=== PATIENT | male | born 1960 | race Caucasian/White ===

== ENCOUNTER 2016-05-21 14:03 | Inpatient (IN) | payer OTHER ==
[2016-05-21 14:51] LABS: MPV 7.6 fL (7.4-10.4)
[2016-05-21 15:02] LABS: BLOOD UREA NITROGEN 12 MG/DL (9-20); CALC CORRECTED 9.1 MG/DL (8.4-10.2); CALCIUM 8.8 MG/DL (8.4-10.2); CALCULATED OSMOLALITY 262 MOs/Kg (270-290); CHLORIDE 101 mEq/L (98-107); GLUCOSE 97 MG/DL (70-99); PARTIAL THROMB. TIME 21.7 SEC (22-35); PT-INR 1.1; SODIUM LEVEL 136 mEq/L (137-146)
--- NOTE | 2016-05-21 15:22 | EDPRACDOC ---
- General Information Chief Complaint: Generalized Weakness Stated Complaint: WEAKNESS/LOW BLOOD COUNTS Time Seen by Provider: 05/21/16 15:15 Information Source: Patient Mode Of Arrival: Car Home Medications: Home Medications CYANOCOBALAMIN (Vitamin B-12) [Vitamin B-12] 1,000 mcg IM .MONTHLY 05/21/16 Finasteride [Proscar] 5 mg PO DAILY 05/21/16 Interferon Beta-1A/Albumin [Rebif 44 Mcg/0.5 ml Syringe] 44 mcg SQ DIR Mercaptopurine 50 mg PO DAILY 05/21/16 Mesalamine [Apriso] 0.375 gm PO QID 05/21/16 Sertraline HCl [Zoloft] 100 mg PO DAILY 05/21/16 Tamsulosin HCl [Flomax] 0.4 mg PO DAILY 05/21/16 Allergies/Adverse Reactions: Allergies Allergy/AdvReac Type Severity Reaction Status Date / Time No Known Allergies Allergy Verified 05/21/16 14:26 - History of Present Illness Onset: 2 months Exact Onset of Symptoms: Unknown HPI: PT HAS BEEN FEELING INCREASINGLY WEAK. THE PT SAID THAT HE WENT TO HIS PCP. HIS DR ABURTO BLOOD AND SAID THAT HE WAS ANEMIC AND TOLD HIM TO GO TO THE ED. Symptoms Started: Reports: Gradually Symptoms Description: Worsening Weakness: Bilateral: Generalized Symptoms: Reports: Weak Symptom Severity: Reports: Unable to performs ADL's Relevant History of: Reports: Anemia Associated signs and symptoms:: Reports: None ED Past Medical History - Patient Medical History Neurological History: Reports: Multiple Sclerosis Systemic History: Reports: Anemia Additional Past Medical History: CROHN'S DISEASE Surgical History: Reports: No Significant History - Social Medical History Smoking Status: Never smoker ETOH: None Substance Abuse: None Lives In: Home EDM Review of Systems - Review of Systems ROS Negative Except as Marked: Yes All systems reviewed and were negative except as marked Constitutional: Fatigue, Weakness - Physical Exam Constitutional: Alert (Awake), No apparent distress Oriented to: Time, Person, Place Last recorded Vital Signs: Last Vital Signs Temp 98.3 F 05/21/16 14:24 Pulse 110 05/21/16 14:24 Resp 22 05/21/16 14:24 BP 134/63 05/21/16 14:24 Pulse Ox 100 05/21/16 14:24 Oxygen Pulse Oxygen Saturation 100 O2 Device Room Air Oxygen Flow Rate Fraction of Inspired Oxygen ( FIO2) - HEENT Head: Normal ( normocephalic) Eye Exam: Pale Conjunctiva Oropharynx: Normal (Pharynx:Moist without exudate,Gums-no swelling) ENT EAC: Normal TMJ: Normal Nose: No Symptoms Reported (septum midline) Neck: Normal (FROM, trachea at midline) - Respiratory/Cardiovascular Respiratory: Normal - CTA (BBS clear to auscultation without adventitious sounds ) Cardiovascular: Tachycardia - GI Auscultation: Normal (NABS) Palpation: Normal (Soft,No rebound or guarding, non distended) Tenderness: Non tender Wallace's Sign: Negative Rectal Exam: Heme negative stool Stool: Brown - Musculoskeletal Back: Normal (Non-Tender) Extremities: Normal (Normal tone, Pulses 2+ No cyanosis or edema, FROM) - Integumentary Skin: Pale Lymphatics: Normal - Neurologic Memory Impaired: Normal Motor Function: Normal (Normal tone, Pulses 2+ No cyanosis or edema, FROM) Cranial Nerve: Normal (CN II-X11 intact sensation, strength 5/5) Cerebellar: Normal Mood Description: Normal Thought: Coherent Perception: Normal - Results 05/21/16 14:30 05/21/16 14:30 WBC 5.1 xk/uL (3.8-10.8) 05/21/16 14:30 RBC 2.53 xM/uL (4.70-6.10) L 05/21/16 14:30 Hgb 4.8 g/dL (14.0-18.0) L* 05/21/16 14:30 Hct 16.5 % (42-52) L 05/21/16 14:30 MCV 65 fL (80-94) L 05/21/16 14:30 MCH 19.0 pg (27-32) L 05/21/16 14:30 MCHC 29.1 g/dl (33-36) L 05/21/16 14:30 RDW 19.4 % (11.5-14.5) H 05/21/16 14:30 Plt Count 337 xk/uL (130-400) 05/21/16 14:30 MPV 7.6 fL (7.4-10.4) 05/21/16 14:30 PT 11.0 SEC (9.2-11.2) 05/21/16 14:30 INR 1.1 05/21/16 14:30 APTT 21.7 SEC (22-35) L 05/21/16 14:30 Sodium 136 mEq/L (137-146) L 05/21/16 14:30 Potassium 4.2 mEq/L (3.5-5.1) 05/21/16 14:30 Chloride 101 mEq/L (98-107) 05/21/16 14:30 Carbon Dioxide 25 mMOL/L (22-33) 05/21/16 14:30 Anion Gap 14 mEq/L (8-16) 05/21/16 14:30 BUN 12 MG/DL (9-20) 05/21/16 14:30 Creatinine 1.10 MG/DL (0.66-1.25) 05/21/16 14:30 Estimated GFR (MDRD) > 60 mL/min (>=60) 05/21/16 14:30 Glucose 97 MG/DL (70-99) 05/21/16 14:30 Calculated Osmolality 262 MOs/Kg (270-290) L 05/21/16 14:30 Calcium 8.8 MG/DL (8.4-10.2) 05/21/16 14:30 Corrected Calcium 9.1 MG/DL (8.4-10.2) 05/21/16 14:30 Total Bilirubin 0.3 MG/DL (0.2-1.3) 05/21/16 14:30 AST 21 IU/L (17-59) 05/21/16 14:30 ALT 27 IU/L (21-72) 05/21/16 14:30 Alkaline Phosphatase 59 IU/L (38-126) 05/21/16 14:30 Troponin I < 0.01 ng/mL (<.04) 05/21/16 14:30 Dqv-P-Yxsjoqmkvwe Pept 113 pg/mL (0-900) 05/21/16 14:30 Total Protein 7.0 G/DL (6.3-8.2) 05/21/16 14:30 Albumin 3.7 G/DL (3.5-5.0) 05/21/16 14:30 Crossmatch See Detail 05/21/16 14:30 Lab Results 05/21/16 05/21/16 05/21/16 14:30 14:30 14:30 WBC 5.1 RBC 2.53 L Hgb 4.8 L* Hct 16.5 L MCV 65 L MCH 19.0 L MCHC 29.1 L RDW 19.4 H Plt Count 337 MPV 7.6 PT 11.0 INR 1.1 APTT 21.7 L Sodium Potassium Chloride Carbon Dioxide Anion Gap BUN Creatinine Estimated GFR (MDRD) Glucose Calculated Osmolality Calcium Corrected Calcium Total Bilirubin AST ALT Alkaline Phosphatase Troponin I Pba-N-Xnmunmgdgly Pept Total Protein Albumin Crossmatch See Detail 05/21/16 14:30 WBC RBC Hgb Hct MCV MCH MCHC RDW Plt Count MPV PT INR APTT Sodium 136 L Potassium 4.2 Chloride 101 Carbon Dioxide 25 Anion Gap 14 BUN 12 Creatinine 1.10 Estimated GFR (MDRD) > 60 Glucose 97 Calculated Osmolality 262 L Calcium 8.8 Corrected Calcium 9.1 Total Bilirubin 0.3 AST 21 ALT 27 Alkaline Phosphatase 59 Troponin I < 0.01 Eke-U-Nyqlzebqsix Pept 113 Total Protein 7.0 Albumin 3.7 Crossmatch - EKG EKG #1 EKG Time: 15:21 -: Yes EKG interpreted by me Rate: bpm: 82 Stephen: Normal Rhythm: NSR, PACs Block: None Hypertrophy: None ST: Normal - Diagnostic Imaging Chest Image interpreted by: Radiologist nad - Departure Yes I personally saw and evaluated the patient. Disposition: Admit IP To This Hospital Condition: Fair Final Diagnosis: Acute post-hemorrhagic anemia Instructions: Weakness (General) Education/Counseling Given To: Patient Education/Counseling Given Regarding: Diagnosis, Treatment, Follow Up Referrals: Farhan Zhang II, MD [Primary Care Provider] - One Week Decision to Admit Time: 15:28 Decision to admit date: 05/21/16 Decision to admit: from ED - Physician Consulted Hospitalist Provider Called: Vickie Carrillo
[2016-05-21 15:42] LABS: SEG NEUTROPHIL 85 % (45-76)
--- NOTE | 2016-05-21 15:53 | DIRPT ---
CLINICAL DATA: Chest pain EXAM: PORTABLE CHEST 1 VIEW COMPARISON: None. FINDINGS: Lungs are clear. Heart size and pulmonary vascularity are normal. No adenopathy. No pneumothorax. No bone lesions. IMPRESSION: No edema or consolidation. Electronically Signed By: Isidoro Hobbs III, M.D. On: 05/21/2016 15:50
[2016-05-21 16:00] LABS: LEUKOCYTES/URINE NEG (NEGATIVE); NITRITE/URINE NEG (NEGATIVE); RBC/URINE 0-2 (0-2); URINE OCCULT BLOOD NEG (NEG/TRACE)
--- NOTE | 2016-05-21 16:57 | HISTPHYS ---
- Chief Complaint weak, pale, sob - History of Present Illness 56 yowm presented to emergency room early on today for evaluation of progressive worsening weakness and abnormal blood test. Patient stays the past few weeks he has noticed progressive worsening weakness, dyspnea initially with moderate amount of physical exertion recently with minimal physical exertion, feeling dizzy lightheaded and profoundly tired. He reports that walking up a flight of steps recently it was a major undertaking. He has noticed profound paleness of his skin lately. Patient reports receiving 2 rounds of antibiotics lately for upper respiratory tract infection and denies any recent cough or phlegm production. Patient reports that his Crohn's disease has been under good control with no recent flare-ups, he denies any abdominal pain nausea vomiting or bloody diarrhea. He reports no easy bruising or bleeding. He was seen by his PCP and CBC was obtained paste advised to proceed to emergency room for further evaluation. Rectal exam was performed by ED MD; no stool in the vault but heme-negative. Medical consultation was phoned in for inpatient treatment. - Medical History Cardiac History: Reports: No Significant History Respiratory History: Reports: No Significant History GI/ History: Reports: No Significant History, Gastroesophageal Reflux (Chrom's ) Musculoskeletal History: Reports: No Significant History Systemic History: Reports: No Significant History, Anemia, Other (multiple sclerosis) Neurological History: Reports: No Significant History, Multiple Sclerosis Psychological History: Reports: Depression, Anxiety - Surgical History Reports: Hernia Surgery, Tonsillectomy - Medictions/Allergies Allergies No Known Allergies Allergy (Verified 05/21/16 14:26) Current Medication List: Reviewed Home Medications CYANOCOBALAMIN (Vitamin B-12) [Vitamin B-12] 1,000 mcg IM .MONTHLY 05/21/16 Finasteride [Proscar] 5 mg PO DAILY 05/21/16 Interferon Beta-1A/Albumin [Rebif 44 Mcg/0.5 ml Syringe] 44 mcg SQ DIR Mercaptopurine 50 mg PO DAILY 05/21/16 Mesalamine [Apriso] 0.375 gm PO QID 05/21/16 Sertraline HCl [Zoloft] 100 mg PO DAILY 05/21/16 Tamsulosin HCl [Flomax] 0.4 mg PO DAILY 05/21/16 - Family History Reports: No Significant History, Other (Both parents alive and well with no major medical problems.) - Social History Travel Outside of [place] in the Last 3 Months?: No Lives: With Family Smoking Status: Never smoker - Review of Systems Constitutional: Diaphoresis, Fatigue, Weakness Eyes: No Symptoms Reported Ears: No Symptoms Reported Nose: No Symptoms Reported Mouth: No Symptoms Reported Throat/Neck: No Symptoms Reported Respiratory: Dyspnea Cardiovascular: Palpitations Gastrointestinal: No Symptoms Reported Genitourinary: No Symptoms Reported Neurological: Dizziness, Weakness Musculoskeletal:: No Symptoms Reported Integumentary: No Symptoms Reported Allergic/Immunologic: No Symptoms Reported Hematologic: No Symptoms Reported Endocrine: No Symptoms Reported Psychiatric: No Symptoms Reported - Physical Exam Vital Signs: Initial Vitals Temperature 98.3 F 05/21/16 14:24 Pulse Rate 110 05/21/16 14:24 Respiratory Rate 22 05/21/16 14:24 Blood Pressure 134/63 05/21/16 14:24 Pulse Oxygen Saturation 100 05/21/16 14:24 Constitutional: No apparent distress, Alert, Other (Pale) Oriented to: Time, Person, Place - HEENT Head: Normal Eye: Normal Oropharynx: Membranes Dry ENT EAC: Normal TMJ: Normal Nose: No Symptoms Reported Respiratory: Diminished, Rhonchi Cardiovascular: Normal, Systolic murmur - GI Auscultation: Normal Palpation: Normal Tenderness: Non tender Wallace's Sign: Negative Rectal Exam: Heme negative stool - Exam Deferred: Yes - Musculoskeletal Back: Normal Extremities: Normal Spine: non-tender - Integumentary Skin: Normal, Warm, Dry, Pale Lymphatics: Normal - Neurologic Memory Impaired: Normal Motor Function: Normal Cranial Nerve: Normal Cerebellar: Normal Mood Description: Normal Thought: Coherent Perception: Normal - Focused CV Perfusion Exam Vital Signs: Last Vital Signs Temp 98.9 F 05/21/16 16:45 Pulse 91 05/21/16 16:45 Resp 18 05/21/16 16:45 BP 138/66 05/21/16 16:45 Pulse Ox 94 05/21/16 16:45 - Diagnostic Findings Allergies No Known Allergies Allergy (Verified 05/21/16 14:26) Last Vital Signs Temp 98.9 F 05/21/16 16:45 Pulse 91 05/21/16 16:45 Resp 18 05/21/16 16:45 BP 138/66 05/21/16 16:45 Pulse Ox 94 05/21/16 16:45 05/21/16 14:30 05/21/16 14:30 Abnormal Lab Results 05/21/16 05/21/16 05/21/16 14:30 14:30 14:30 RBC 2.53 L Hgb 4.8 L* Hct 16.5 L MCV 65 L MCH 19.0 L MCHC 29.1 L RDW 19.4 H Seg Neuts % (Manual) 85 H Lymphocytes % (Manual) 8 L Absolute Lymphocytes 0.41 L APTT 21.7 L Sodium 136 L Calculated Osmolality 262 L Crossmatch 05/21/16 14:30 RBC Hgb Hct MCV MCH MCHC RDW Seg Neuts % (Manual) Lymphocytes % (Manual) Absolute Lymphocytes APTT Sodium Calculated Osmolality Crossmatch See Detail - Assessment (1) Anemia D64.9 - ANEMIA, UNSPECIFIED Acute Present on Admission: Yes Qualifiers: Anemia type: unspecified type Qualified Code(s): D64.9 - Anemia, unspecified Profound and symptomatic. Patient will be type and crossed and transfused with 4 units of pooled red blood cells. Monitor blood count after transfusion. Workup will be undertaken, will obtain iron studies B12 and folic acid prior to transfusion. Hem lytic workup will be undertaken as well. Given chronic immunosuppressive therapy did may result in bone marrow suppression will withhold his Imuran and consult Hematology. Parvovirus titers will be obtained as well. (2) Crohn's colitis K50.10 - CROHN'S DISEASE OF LARGE INTESTINE WITHOUT COMPLICATIONS Chronic Present on Admission: Yes Qualifiers: Digestive disease complication type: without complication Qualified Code(s) : K50.10 - Crohn's disease of large intestine without complications Will continue Asacol. Will withhold Imuran. Patient will be seen in consultation by his personal health equipment servicer Dr. Jeffers. It seems that Crohn' s colitis has been under good control with no recent flare-ups and no active issues. (3) Multiple sclerosis G35 - MULTIPLE SCLEROSIS Chronic Present on Admission: Yes Continue interferon. Stable with no recent flare-ups as well (4) BPH (benign prostatic hyperplasia) N40.0 - BENIGN PROSTATIC HYPERPLASIA WITHOUT LOWER URINRY TRACT SYMP Chronic Present on Admission: Yes Qualifiers: Prostatic enlargement morphology: non-nodular Lower urinary tract symptom presence: symptoms absent Qualified Code(s): N40.0 - Benign prostatic hyperplasia without lower urinary tract symptoms Stable on medical therapy with no obstructive symptoms at present time (5) Adolescent depression F32.9 - MAJOR DEPRESSIVE DISORDER, SINGLE EPISODE, UNSPECIFIED Chronic Present on Admission: Yes Continue Zoloft (6) GERD (gastroesophageal reflux disease) K21.9 - GASTRO-ESOPHAGEAL REFLUX DISEASE WITHOUT ESOPHAGITIS Chronic Present on Admission: Yes Qualifiers: Esophagitis presence: without esophagitis Qualified Code(s): K21.9 - Gastro -esophageal reflux disease without esophagitis Continue PPI Case Care Discussed with: Patient, Consultants, Nursing Staff Total Time: 60 min . Critical Care: No Code: 32690
[2016-05-21] MEDS ORDERED: NS 1,000 ML IV SCH (17:00)
[2016-05-21 18:26] LABS: % SATURATION 2.8 % (20-50)
[2016-05-21 19:24] LABS: FOLATES 15.5 ng/mL (>2.76)
[2016-05-21] MEDS ORDERED: ENOXAPARIN 40 MG/0.4 ML PFS SQ SCH (20:00)
[2016-05-21] MEDS ORDERED: MESALAMINE 0.375 GM PO SCH (21:00)
[2016-05-22] MEDS ORDERED: Vaccine Screening Complete SCH (01:00)
[2016-05-22 01:41] VITALS: BMI 25.7
[2016-05-22 04:59] VITALS: TEMP 98.5
[2016-05-22 06:13] LABS: AUTOMATED BASOPHIL 1.7 % (0-2); AUTOMATED LYMPH 19.2 % (17-44); AUTOMATED MONOCYTE 9.5 % (3-10); AUTOMATED NEUTROPHIL 68.6 % (45-76); MPV 7.8 fL (7.4-10.4)
[2016-05-22 06:25] LABS: BLOOD UREA NITROGEN 10 MG/DL (9-20); CALCIUM 8.3 MG/DL (8.4-10.2); CALCULATED OSMOLALITY 267 MOs/Kg (270-290); CHLORIDE 107 mEq/L (98-107); GLUCOSE 85 MG/DL (70-99); SODIUM LEVEL 140 mEq/L (137-146)
[2016-05-22] MEDS ORDERED: NS 1,000 ML IV SCH (08:00)
--- NOTE | 2016-05-22 08:04 | GENMEDPROG ---
Subjective Note: Patient in bed responsive follows commands. Fully alert awake oriented and interactive. Tolerated blood transfusion with no reaction. Feels much better after transfusion.. Denies any difficulties breathing cough or phlegm production denies any nausea vomiting diarrhea constipation or melena. Notes Reviewed: Yes Events from last night noted and discussed with Clinical Staff Current Medication List: Reviewed Currently: Reports: Reflux Sx DVT Prophylaxis: Yes - Physical Examination Vital Signs and I&O: Last Vital Signs Temp 98.5 F 05/22/16 04:54 Pulse 61 05/22/16 06:00 Resp 18 05/22/16 04:54 BP 138/77 05/22/16 04:54 Pulse Ox 100 05/22/16 04:54 Oxygen Pulse Oxygen Saturation 100 O2 Device Room Air Oxygen Flow Rate Fraction of Inspired Oxygen ( FIO2) Intake & Output 05/19/16 05/20/16 05/21/16 05/22/16 23:59 23:59 23:59 23:59 Intake Total 1080 840 Output Total 550 1050 Balance 530 -210 Patient's weight 72.303 kg General: Alert, Oriented x3, Cooperative, No acute distress HEENT: Normal, PERRLA, EOMI, Anicteric Sclera Neck: Non-tender, Limited range of motion Lymphatics: Normal Respiratory: Diminished, Rhonchi Cardiovascular: Regular rate, Normal S1, Normal S2 GI: Normal bowel sounds, Soft, Non tender, No hepatospenomegaly, No masses Extremities/Musculoskeletal: Normal pulses Skin: Warm,Dry and Intact, No rashes, No breakdown, No significant lesion Neurological: Normal speech, Normal tone Psych/Mental Status: Anxious Lab/DI/Studies Reviewed: Allergies No Known Allergies Allergy (Verified 05/21/16 14:26) 05/22/16 05:50 05/22/16 05:50 Abnormal Lab Results 05/21/16 05/21/16 05/21/16 14:30 14:30 14:30 RBC 2.53 L Hgb 4.8 L* Hct 16.5 L MCV 65 L MCH 19.0 L MCHC 29.1 L RDW 19.4 H Seg Neuts % (Manual) 85 H Lymphocytes % (Manual) 8 L Absolute Lymphocytes 0.41 L APTT 21.7 L Sodium 136 L Calculated Osmolality 262 L Calcium Iron % Saturation Ferritin Lactate Dehydrogenase Crossmatch 05/21/16 05/21/1617 14:30 14:30 14:30 RBC Hgb Hct MCV MCH MCHC RDW Seg Neuts % (Manual) Lymphocytes % (Manual) Absolute Lymphocytes APTT Sodium Calculated Osmolality Calcium Iron 13.0 L % Saturation 2.8 L Ferritin 6.8 L Lactate Dehydrogenase 309 L Crossmatch See Detail 05/22/16 05/22/16 05:50 05:50 RBC 3.90 L Hgb 9.4 L D Hct 29.0 L MCV 74 L MCH 24.1 L MCHC 32.3 L RDW 22.9 H Seg Neuts % (Manual) Lymphocytes % (Manual) Absolute Lymphocytes APTT Sodium Calculated Osmolality 267 L Calcium 8.3 L Iron % Saturation Ferritin Lactate Dehydrogenase Crossmatch Patient Name: FARRAH EDDY LOC: ED : 1960 AGE: 56 Order Date:05/21/16 Date of Service:09/01 Report # [id number] Ord Physician: Darren Joshi DO Exam # [id number] Emergency Physician: Marybeth Lee MD Exam(s): [id number] RAD/DG CHEST PORTABLE CLINICAL DATA: Chest pain EXAM: PORTABLE CHEST 1 VIEW COMPARISON: None. FINDINGS: Lungs are clear. Heart size and pulmonary vascularity are normal. No adenopathy. No pneumothorax. No bone lesions. IMPRESSION: No edema or consolidation. Electronically Signed By: Isidoro Hobbs III, M.D. On: 05/21/2016 15:50 - Assessment (1) Anemia Acute D64.9 - ANEMIA, UNSPECIFIED Qualifiers: Anemia type: iron deficiency Comment/Plan: Iron studies show iron deficiency. Patient will require iron supplemental therapy. Await Hematology assessment. (2) Crohn's colitis Chronic K50.10 - CROHN'S DISEASE OF LARGE INTESTINE WITHOUT COMPLICATIONS Qualifiers: Digestive disease complication type: without complication Qualified Code(s) : K50.10 - Crohn's disease of large intestine without complications Comment/Plan: Stable at present time.. Continue Asacol.. Imuran on hold.. Dr. Jeffers to see.. (3) Multiple sclerosis Chronic G35 - MULTIPLE SCLEROSIS Comment/Plan: Stable.. Continue interferon. Stable with no recent flare-ups as well (4) BPH (benign prostatic hyperplasia) Chronic N40.0 - BENIGN PROSTATIC HYPERPLASIA WITHOUT LOWER URINRY TRACT SYMP Qualifiers: Prostatic enlargement morphology: non-nodular Lower urinary tract symptom presence: symptoms absent Qualified Code(s): N40.0 - Benign prostatic hyperplasia without lower urinary tract symptoms Comment/Plan: Stable on medical therapy with no obstructive symptoms at present time (5) Adolescent depression Chronic F32.9 - MAJOR DEPRESSIVE DISORDER, SINGLE EPISODE, UNSPECIFIED Comment/Plan: Continue Zoloft. (6) GERD (gastroesophageal reflux disease) Chronic K21.9 - GASTRO-ESOPHAGEAL REFLUX DISEASE WITHOUT ESOPHAGITIS Qualifiers: Esophagitis presence: without esophagitis Qualified Code(s): K21.9 - Gastro -esophageal reflux disease without esophagitis Comment/Plan: Continue PPI Case Care Discussed with: Patient, Consultants, Family, Nursing Staff, Other Education/Counseling Given To: Patient Education/Counseling Given Regarding: Diagnosis, Treatment, Prognosis Total Time: 45 min. Critical Care: No Code: 35835 (12+)
[2016-05-22] MEDS ORDERED: PANTOPRAZOLE 40 MG TAB PO SCH (08:30)
[2016-05-22] MEDS ORDERED: FINASTERIDE 5 MG TAB PO SCH (09:00)
[2016-05-22] MEDS ORDERED: MESALAMINE 1.5 GM PO SCH (09:00)
[2016-05-22] MEDS ORDERED: MERCAPTOPURINE 50 MG TAB PO SCH (09:00)
[2016-05-22] MEDS ORDERED: SERTRALINE HCL 100 MG TAB PO SCH (09:00)
[2016-05-22] MEDS ORDERED: TAMSULOSIN HCL 0.4 MG CAP PO SCH (09:00)
--- NOTE | 2016-05-22 12:27 | PCM.CONSGI ---
Consult Date: 05/22/16 Consult Requesting Physician: Lenard Amin Consult Reason: Anemia - History of Present Illness 56-year-old very pleasant male who was admitted through the emergency room through Dr. Zhang's office with progressive worsening weakness and abnormal hemoglobin of 4.8 with low MCV. He has had weakness, dyspnea initially with moderate amount of physical exertion recently with minimal physical exertion, feeling dizzy lightheaded and profoundly tired. He reports that walking up a flight of steps recently it was a major undertaking. He has noticed profound paleness of his skin lately. Patient reports receiving 2 rounds of antibiotics lately for upper respiratory tract infection and denies any recent cough or phlegm production. Patient reports that his Crohn's disease has been under good control with no recent flare-ups, he denies any abdominal pain nausea vomiting or bloody diarrhea. He reports no easy bruising or bleeding. Rectal exam was performed by ED MD; no stool in the vault but heme-negative. He has received 4 units of PRBC. Hematology is also been consulted. PAST GI HISTORY: CROHN'S DISEASE: Diagnosed 2005 in [place] when he presented with rectal bleeding, has been on steroids, Pentasa and most recently on Apriso. He was also started on 6 MP 50 mg per day. His last colonoscopy was in 2014 in [place]. He has ileocecal valve and terminal ileal involvement with B12 deficiency. No history of any surgeries. He has been maintained on a low-dose 6 MP. He has been on B12 shots - Past Medical History Cardiac History: Reports: No Significant History Respiratory History: Reports: No Significant History GI/ History: Reports: GERD (Chrom's), Prostate Problems (BPH), Other (crohns' s disease) Musculoskeletal History: Reports: No Significant History Systemic History: Reports: Anemia, Other (B2 def) Neurological History: Reports: Other (MS) Psychological History: Reports: Anxiety, Depression - Surgical History Past Surgical History: Reports: Appendectomy, Hernia Surgery, Other (Fissure Sx) - Allergies Allergies No Known Allergies Allergy (Verified 05/21/16 14:26) - Medications Home Medications CYANOCOBALAMIN (Vitamin B-12) [Vitamin B-12] 1,000 mcg IM .MONTHLY 05/21/16 Finasteride [Proscar] 5 mg PO DAILY 05/21/16 Interferon Beta-1A/Albumin [Rebif 44 Mcg/0.5 ml Syringe] 44 mcg SQ DIR Mercaptopurine 50 mg PO DAILY 05/21/16 Mesalamine [Apriso] 1.5 gm PO DAILY 05/21/16 Sertraline HCl [Zoloft] 100 mg PO DAILY 05/21/16 Tamsulosin HCl [Flomax] 0.4 mg PO DAILY 05/21/16 - Social History Lives: With Family Smoking Status: Never smoker - Exam Vital Signs: Temperature: 98.5 F (05/22/16 04:54) HR: 68 (05/22/16 08:00) RR: 18 (05/22/16 04:54) BP: 146/79 (05/22/16 08:00) Pulse Ox: 100 (05/22/16 08:00) General: Alert, Oriented x3, Cooperative, No acute distress HEENT: Normal, Other (No Jaundice). negative: Pallor Cardiovascular: Normal S1, Normal S2, Other (No S3 or S4.). negative: No murmurs Gastrointestinal: Soft, Bowel Sounds (normal), Other (No ascites.). negative: Tender, Guarding, Rigid, Hepatosplenomegaly Extremities: Normal pulses. negative: Swelling, Edema Skin: Warm,Dry and Intact Neurological: Normal speech, Other (No focal neurologic deficits.) Psych/Mental Status: Normal Affect, Cooperative - Labs Result Diagrams: 05/22/16 05:50 05/22/16 05:50 Laboratory Tests 05/21/16 05/21/16 05/21/16 14:30 14:30 14:30 WBC 5.1 Hgb 4.8 L* MCV 65 L Plt Count 337 PT 11.0 INR 1.1 APTT 21.7 L Sodium 136 L Potassium 4.2 Chloride 101 Carbon Dioxide 25 Anion Gap 14 BUN 12 Creatinine 1.10 Estimated GFR (MDRD) > 60 Calculated Osmolality 262 L Iron TIBC % Saturation Ferritin AST 21 ALT 27 Alkaline Phosphatase 59 05/21/16 05/22/16 05/22/16 14:30 05:50 05:50 WBC 4.3 Hgb 9.4 L D MCV 74 L Plt Count 254 PT INR APTT Sodium 140 Potassium 4.4 Chloride 107 Carbon Dioxide 25 Anion Gap 12 BUN 10 Creatinine 1.00 Estimated GFR (MDRD) > 60 Calculated Osmolality 267 L Iron 13.0 L TIBC 449 % Saturation 2.8 L Ferritin 6.8 L AST ALT Alkaline Phosphatase - Assessment and Plan (1) Iron deficiency anemia, unspecified Acute D50.9 - IRON DEFICIENCY ANEMIA, UNSPECIFIED Comment: With heme-negative stools. Admission hemoglobin of 4.8 with MCV of 65 status post 4 units of PRBC to hemoglobin of 9.4 (2) GERD (gastroesophageal reflux disease) Chronic K21.9 - GASTRO-ESOPHAGEAL REFLUX DISEASE WITHOUT ESOPHAGITIS without esophagitis K21.9 - Gastro-esophageal reflux disease without esophagitis (3) Multiple sclerosis Chronic G35 - MULTIPLE SCLEROSIS (4) Crohns disease Acute K50.90 - CROHN'S DISEASE, UNSPECIFIED, WITHOUT COMPLICATIONS Comment: CROHN'S DISEASE: Diagnosed 2005 in [place] when he presented with rectal bleeding, has been on steroids, Pentasa and most recently on Apriso. He was also started on 6 MP 50 mg per day. His last colonoscopy was in 2014 in [place]. He has ileocecal valve and terminal ileal involvement with B12 deficiency. No history of any surgeries. He did have ?? bone marrow suppression when the does of 6 MP was increased. He has been on B12 shots Recommendations: 1. agree with blood transfusion since he had symptomatic anemia 2. Agree with hematology consultation. 3. Patient could have some degree of bone marrow suppression. There is no obvious signs of GI bleeding. We have to stop 6 MP as he has life-threatening serious anemia. 4. Follow up in the GI clinic in 1 week. He would require a complete GI evaluation including EGD and colonoscopy. Would continue B12 supplementation. Have to add iron supplements as well. Unfortunately, we may have to reduce does of 6 MP. This does increase the risk of Crohn's flare-up. He is not keen on stopping [address] scan of the abdomen and pelvis today for severe iron deficiency anemia and to rule out any masses. Seen in presence of nurse
[2016-05-22] MEDS ORDERED: DIATRIZOATE MEGLMINE/SODIUM 30 ML BOTTLE PO ONE (12:52)
[2016-05-22] MEDS ORDERED: Pharmacy Review for Metformin - IV Contrast Given SCH ×2 (13:00)
[2016-05-22 16:54] VITALS: BP 142/83
--- NOTE | 2016-05-22 17:06 | DIRPT ---
CLINICAL DATA: Iron deficiency anemia. Crohn's disease. EXAM: CT ABDOMEN AND PELVIS WITH CONTRAST TECHNIQUE: Multidetector CT imaging of the abdomen and pelvis was performed using the standard protocol following bolus administration of intravenous contrast. CONTRAST: 100 cc of Isovue 370 COMPARISON: None FINDINGS: Lower chest: There is no pleural fluid noted. The lung bases appear clear. Hepatobiliary: There are several small low-density structures within the liver. The largest measures 8 mm. These are too small to characterize but likely represent small cysts. The gallbladder appears normal. No biliary dilatation. Pancreas: The pancreas is unremarkable. Spleen: Normal appearance of the spleen. Adrenals/Urinary Tract: The adrenal glands are both normal. The right kidney is normal. Tiny low attenuation structure within the inferior pole the left kidney is too small to characterize. The urinary bladder is unremarkable. Stomach/Bowel: The stomach is normal. The small bowel loops have a normal caliber. No obstruction. Wall thickening and inflammation involving the terminal ileum is identified compatible with Crohn's ileitis. Single wall thickness measures up to 11 mm, image 58 of series 3. This involves the last 13 cm of small bowel. There is mild pre stenotic dilatation of the small bowel, image 48 of series 200. No evidence for bowel obstruction. There is enteric contrast material noted throughout the normal appearing colon. The appendix is visualized and appears normal. No evidence for penetrating disease or abscess formation. Vascular/Lymphatic: Normal appearance of the abdominal aorta. No enlarged retroperitoneal or mesenteric adenopathy. No enlarged pelvic or inguinal lymph nodes. Reproductive: Prostate gland and seminal vesicles are unremarkable. Other: No ascites or fluid collections identified. Musculoskeletal: No aggressive lytic or sclerotic bone lesions. IMPRESSION: 1. Findings compatible with acute Crohn's ileitis. 2. No evidence for penetrating disease. No fistula or abscess formation noted. No evidence for bowel obstruction. Electronically Signed By: Aundrea Santana M.D. On: 05/22/2016 17:03
--- NOTE | 2016-05-22 17:41 | PCM.DCS92 ---
- Final/Secondary Discharge Diagnosis (1) Anemia Resolved D64.9 - ANEMIA, UNSPECIFIED Present on Admission: Yes iron deficiency Comment: Iron studies show iron deficiency. Patient will require iron supplemental therapy. Await Hematology assessment. (2) Crohn's colitis Chronic K50.10 - CROHN'S DISEASE OF LARGE INTESTINE WITHOUT COMPLICATIONS Present on Admission: Yes without complication K50.10 - Crohn's disease of large intestine without complications Comment: Stable at present time.. Continue Asacol.. Imuran on hold.. Dr. Jeffers to see.. (3) Multiple sclerosis Chronic G35 - MULTIPLE SCLEROSIS Present on Admission: Yes Comment: Stable.. Continue interferon. Stable with no recent flare-ups as well (4) BPH (benign prostatic hyperplasia) Chronic N40.0 - BENIGN PROSTATIC HYPERPLASIA WITHOUT LOWER URINRY TRACT SYMP Present on Admission: Yes non-nodular symptoms absent N40.0 - Benign prostatic hyperplasia without lower urinary tract symptoms Comment: Stable on medical therapy with no obstructive symptoms at present time (5) Adolescent depression Chronic F32.9 - MAJOR DEPRESSIVE DISORDER, SINGLE EPISODE, UNSPECIFIED Present on Admission: Yes Comment: Continue Zoloft. (6) GERD (gastroesophageal reflux disease) Chronic K21.9 - GASTRO-ESOPHAGEAL REFLUX DISEASE WITHOUT ESOPHAGITIS Present on Admission: Yes without esophagitis K21.9 - Gastro-esophageal reflux disease without esophagitis Comment: Continue PPI Discharge Disposition: Home Discharge Condition: Improved Cognitive Discharge Status: Unimpaired Fuctional Discharge Status: Independent Physician Follow up/Referrals: Farhan Zhang II, MD [Primary Care Provider] - One Week Eyad Jeffers MD [Staff Provider No Admit] - Listed Time New Prescriptions: Vitamins,Minerals,Iron [Hemocyte Plus] 1 each PO DAILY #90 tab Omeprazole [Prilosec] 40 mg PO DAILY #60 cap O2 Device: Room Air Diet at Discharge: As Tolerated, Heart Healthy Activity: As Tolerated Call Office For: Worsening Symptoms, Fever over 101 F Discontinue use of:: Alcohol, All Illegal Substances, All Types of Tobacco - DC Summary Notes HPI/Notes: Patient Name: FARRAH EDDY LOC: ICU : 1960 AGE: 56 Order Date:05/22/16 Date of Service:10/01 Report # [id number] Ord Physician: Eyad Jeffers MD Exam # [id number] Emergency Physician: Marybeth Lee MD Exam(s): [id number] CT/CT ABD-PELV W/IV CM CLINICAL DATA: Iron deficiency anemia. Crohn's disease. EXAM: CT ABDOMEN AND PELVIS WITH CONTRAST TECHNIQUE: Multidetector CT imaging of the abdomen and pelvis was performed using the standard protocol following bolus administration of intravenous contrast. CONTRAST: 100 cc of Isovue 370 COMPARISON: None FINDINGS: Lower chest: There is no pleural fluid noted. The lung bases appear clear. Hepatobiliary: There are several small low-density structures within the liver. The largest measures 8 mm. These are too small to characterize but likely represent small cysts. The gallbladder appears normal. No biliary dilatation. Pancreas: The pancreas is unremarkable. Spleen: Normal appearance of the spleen. Adrenals/Urinary Tract: The adrenal glands are both normal. The right kidney is normal. Tiny low attenuation structure within the inferior pole the left kidney is too small to characterize. The urinary bladder is unremarkable. Stomach/Bowel: The stomach is normal. The small bowel loops have a normal caliber. No obstruction. Wall thickening and inflammation involving the terminal ileum is identified compatible with Crohn's ileitis. Single wall thickness measures up to 11 mm, image 58 of series 3. This involves the last 13 cm of small bowel. There is mild pre stenotic dilatation of the small bowel, image 48 of series 200. No evidence for bowel obstruction. There is enteric contrast material noted throughout the normal appearing colon. The appendix is visualized and appears normal. No evidence for penetrating disease or abscess formation. Vascular/Lymphatic: Normal appearance of the abdominal aorta. No enlarged retroperitoneal or mesenteric adenopathy. No enlarged pelvic or inguinal lymph nodes. Reproductive: Prostate gland and seminal vesicles are unremarkable. Other: No ascites or fluid collections identified. Musculoskeletal: No aggressive lytic or sclerotic bone lesions. IMPRESSION: 1. Findings compatible with acute Crohn's ileitis. 2. No evidence for penetrating disease. No fistula or abscess formation noted. No evidence for bowel obstruction. Electronically Signed By: Aundrea Santana M.D. On: 05/22/2016 17:03 Hospital Course Note:: Discharge summary on patient named FARRAH EDDY admitted to [facility] on 05/21/16 by Lenard Amin MD. Date of discharge is []. Patient has initially presented to his PCP office few days ago for evaluation of progressive worsening weakness and dyspnea. Routine blood tests were obtained and patient was found to be profoundly anemic with hemoglobin of 4.9. Patient was subsequently a advised by his PCP to proceed to emergency room for evaluation. Profound anemia was confirmed by blood testing in ED, rectal exam obtained by ED MD was heme-negative. Patient is admitted to monitor bed typed and crossed and transfused 4 units of pooled red blood cells his hemoglobin after blood transfusion was 9.4. Given underlying medical problems he was seen consultation by regional refrigerated cdl truck driver and his personal water ski assembler Dr. Jeffers. His B12 and folic acid were normal he was found to be profoundly iron deficient. During hospital stay patient has remained hemodynamically stable and there was no complications related to blood transfusion. His in Immuran was withheld. CT abdomen and pelvis was obtained which showed acute Crohn's ileitis but no evidence of penetrating disease no fistula abscess or bowel obstruction. Patient was kept on a regular diet during hospital stay and did not report any abdominal symptoms; no nausea vomiting no bloody diarrhea or melena. On May 22 patient was cleared for discharge by water ski assembler and in clinically stable improved condition he has been discharged home to the care of the family and his PCP. Total Time: 40 min . Code: 18616 (<30 min.) - Physical Exam Vital Signs: Last Vital Signs Temp 98.5 F 05/22/16 04:54 Pulse 64 05/22/16 16:00 Resp 20 05/22/16 16:00 BP 142/83 05/22/16 16:00 Pulse Ox 98 05/22/16 16:00 Oxygen Pulse Oxygen Saturation 98 O2 Device Room Air Oxygen Flow Rate Fraction of Inspired Oxygen ( FIO2) Constitutional: No apparent distress, Alert, Other (Pale) Oriented to: Time, Person, Place - HEENT Head: Normal Eye: Normal Oropharynx: Membranes Dry ENT EAC: Normal TMJ: Normal Nose: No Symptoms Reported - Respiratory/Cardiovascular Respiratory: Diminished, Rhonchi Cardiovascular: Normal - GI Auscultation: Normal Palpation: Normal Tenderness: Non tender Wallace's Sign: Negative Rectal Exam: Heme negative stool - Exam Deferred: No - Musculoskeletal Back: Normal Extremities: Normal - Integumentary Skin: Normal, Warm, Dry Lymphatics: Normal - Neurologic Memory Impaired: Normal Motor Function: Normal Cranial Nerve: Normal Cerebellar: Normal Mood Description: Normal Thought: Coherent Perception: Normal - Other Exam Other Exam Findings: Allergies No Known Allergies Allergy (Verified 05/21/16 14:26) Last Vital Signs Temp 98.5 F 05/22/16 04:54 Pulse 64 05/22/16 16:00 Resp 20 05/22/16 16:00 BP 142/83 05/22/16 16:00 Pulse Ox 98 05/22/16 16:00 Abnormal Lab Results 05/21/16 05/21/16 05/21/16 14:30 14:30 14:30 RBC Hgb Hct MCV MCH MCHC RDW Calculated Osmolality Calcium Iron 13.0 L % Saturation 2.8 L Ferritin 6.8 L Lactate Dehydrogenase 309 L Crossmatch See Detail 05/22/16 05/22/16 05:50 05:50 RBC 3.90 L Hgb 9.4 L D Hct 29.0 L MCV 74 L MCH 24.1 L MCHC 32.3 L RDW 22.9 H Calculated Osmolality 267 L Calcium 8.3 L Iron % Saturation Ferritin Lactate Dehydrogenase Crossmatch 05/22/16 05:50 05/22/16 05:50 Home Medications CYANOCOBALAMIN (Vitamin B-12) [Vitamin B-12] 1,000 mcg IM .MONTHLY 05/21/16 Finasteride [Proscar] 5 mg PO DAILY 05/21/16 Interferon Beta-1A/Albumin [Rebif 44 Mcg/0.5 ml Syringe] 44 mcg SQ DIR Mercaptopurine 50 mg PO DAILY 05/21/16 Mesalamine [Apriso] 1.5 gm PO DAILY 05/21/16 Sertraline HCl [Zoloft] 100 mg PO DAILY 05/21/16 Tamsulosin HCl [Flomax] 0.4 mg PO DAILY 05/21/16 Omeprazole [Prilosec] 40 mg PO DAILY #60 cap 05/22/16 Vitamins,Minerals,Iron [Hemocyte Plus] 1 each PO DAILY #90 tab 05/22/16 Discharge Home Medication List CYANOCOBALAMIN (Vitamin B-12) [Vitamin B-12] 1,000 mcg IM .MONTHLY 05/21/16 [ History Confirmed 05/21/16] Finasteride [Proscar] 5 mg PO DAILY 05/21/16 [History Confirmed 05/21/16] Interferon Beta-1A/Albumin [Rebif 44 Mcg/0.5 ml Syringe] 44 mcg SQ DIR [History Confirmed 05/21/16] Mercaptopurine 50 mg PO DAILY 05/21/16 [History Confirmed 05/21/16] Mesalamine [Apriso] 1.5 gm PO DAILY 05/21/16 [History Confirmed 05/22/16] Sertraline HCl [Zoloft] 100 mg PO DAILY 05/21/16 [History Confirmed 05/21/16] Tamsulosin HCl [Flomax] 0.4 mg PO DAILY 05/21/16 [History Confirmed 05/21/16] Omeprazole [Prilosec] 40 mg PO DAILY #60 cap 05/22/16 [Rx] Vitamins,Minerals,Iron [Hemocyte Plus] 1 each PO DAILY #90 tab 05/22/16 [Rx] New Discharge Medications (Rx) Omeprazole [Prilosec] 40 mg PO DAILY #60 cap 05/22/16 [Rx] Vitamins,Minerals,Iron [Hemocyte Plus] 1 each PO DAILY #90 tab 05/22/16 [Rx] Active Problems Acute post-hemorrhagic anemia (Acute) D62 Anemia (Acute) D64.9 Iron studies show iron deficiency. Patient will require iron supplemental therapy. Await Hematology assessment. Crohns disease (Acute) K50.90 Iron deficiency anemia, unspecified (Acute) D50.9 Adolescent depression (Chronic) F32.9 Continue Zoloft. BPH (benign prostatic hyperplasia) (Chronic) N40.0 Stable on medical therapy with no obstructive symptoms at present time Crohn's colitis (Chronic) K50.10 Stable at present time.. Continue Asacol.. Imuran on hold.. Dr. Jeffers to see.. GERD (gastroesophageal reflux disease) (Chronic) K21.9 Continue PPI Multiple sclerosis (Chronic) G35 Stable.. Continue interferon. Stable with no recent flare-ups as well Microbiology 05/21/16 21:15 Nares Nasal Screen MRSA (PCR)(MARTY) - Final NEGATIVE for MRSA DNA
[2016-05-22 17:54] VITALS: PULSE 79
[2016-05-22] MEDS ORDERED: ENOXAPARIN 40 MG/0.4 ML PFS SQ SCH (18:00)
--- NOTE | 2016-05-22 19:36 | PCM.CCCON2 ---
Consult Date: 05/22/16 Requesting Physician: Lenard Amin Consulting Doctor: Susan Luna Consult Reason: Hematology (severe anemia) Travel Outside of [place] in the Last 3 Months?: No Consultation Note: History of Present Illness: This is a 56-year-old man who had simultaneous diagnosis of Crohn 's disease and multiple sclerosis and has been on treatment with Imuran and alpha interferon. He denies any bleeding but presented at this time with a hemoglobin down to 4.8. His white count and platelet count remained normal and his stool Hemoccult was negative. I now have the benefit of multiple labs showing normal B12 and folate but labs clearly consistent with iron deficiency. He has not had iron supplement in the past. He does complain of severe dyspnea on exertion, fatigue and weakness. He has palpitations and diaphoresis as well as dizziness. Past Medical History: Crohn 's disease, multiple sclerosis, benign prostatic hypertrophy, gastroesophageal reflux disease, and depression. Past Surgical History: Hernia surgery and tonsillectomy. Allergies No Known Allergies Allergy (Verified 05/21/16 14:26) Home Medications CYANOCOBALAMIN (Vitamin B-12) Vitamin B-12 1,000 mcg IM .MONTHLY 05/21/16 Finasteride [Proscar] 5 mg PO DAILY 05/21/16 Interferon Beta-1A/Albumin [Rebif 44 Mcg/0.5 ml Syringe] 44 mcg SQ DIR Mercaptopurine 50 mg PO DAILY 05/21/16 Mesalamine [Apriso] 1.5 gm PO DAILY 05/21/16 Sertraline HCl [Zoloft] 100 mg PO DAILY 05/21/16 Tamsulosin HCl [Flomax] 0.4 mg PO DAILY 05/21/16 Omeprazole [Prilosec] 40 mg PO DAILY #60 cap 05/22/16 Vitamins,Minerals,Iron [Hemocyte Plus] 1 each PO DAILY #90 tab 05/22/16 Family History: Negative for cancer or blood dyscrasias. Social History: Traveled outside the [place] in the last 3 months? No. Never smoker. Review of Systems: Unremarkable other than the symptoms as described in the history of present illness. Physical Examination: Temperature: 98.5 F (05/22/16 04:54)HR: 79 (05/22/16 17:53)RR: 20 (05/22/16 16: 00)BP: 142/83 (05/22/16 16:00) SAT:98 (05/22/16 16:00) This is a well-developed well-nourished pleasant white male in no acute distress.HEENT: pupils are equal, round, reactive to light. Sclera are nonicteric. He still appears quite pale despite transfusion. Posterior pharynx is benign. No thyromegaly. No adenopathy is palpated in the cervical, clavicular, axillary or inguinal areas. Lungs are clear to auscultation and percussion. Heart has a regular rate and rhythm with no murmurs or gallops. Abdomen is soft, no masses, no hepatosplenomegaly or tenderness. Extremities are without edema. Neurologic exam is grossly intact. LAB/DI: Laboratory Results - last 24 hr 05/21/16 05/21/16 05/21/16 14:30 14:30 21:30 WBC RBC Hgb Hct MCV MCH MCHC RDW Plt Count MPV Neut % (Auto) Lymph % (Auto) [place] % (Auto) Eos % (Auto) Baso % (Auto) Absolute Neuts (auto) Absolute Lymphs (auto) RBC Morphology Haptoglobin 170 Sodium Potassium Chloride Carbon Dioxide Anion Gap BUN Creatinine Estimated GFR (MDRD) Glucose Calculated Osmolality Calcium Magnesium Troponin I < 0.01 Blood Type A POSITIVE Antibody Screen Negative Crossmatch See Detail 05/22/16 05/22/16 05:50 05:50 WBC 4.3 RBC 3.90 L Hgb 9.4 L D Hct 29.0 L MCV 74 L MCH 24.1 L MCHC 32.3 L RDW 22.9 H Plt Count 254 MPV 7.8 Neut % (Auto) 68.6 Lymph % (Auto) 19.2 [place] % (Auto) 9.5 Eos % (Auto) 1.0 Baso % (Auto) 1.7 Absolute Neuts (auto) 2.92 Absolute Lymphs (auto) 0.82 RBC Morphology Reviewed this admiss Haptoglobin Sodium 140 Potassium 4.4 Chloride 107 Carbon Dioxide 25 Anion Gap 12 BUN 10 Creatinine 1.00 Estimated GFR (MDRD) > 60 Glucose 85 Calculated Osmolality 267 L Calcium 8.3 L Magnesium 1.90 Troponin I Blood Type Antibody Screen Crossmatch Recommendations: Impression and recommendations: This is a patient with Crohn 's disease and multiple sclerosis who has severe anemia and iron studies clearly indicate severe iron deficiency. Has been transfused now and I recommend iron supplement , most likely in the form of Hemocyte or tandem so that it is not as hard on his gastrointestinal tract. If he is unable to trial a rate the oral iron we will be glad to administer intravenous iron injections and I explained that to him. However if he is doing well otherwise I can simply see him back as needed. He will plan to follow up with Dr. Jeffers to monitor his blood counts. I explained all of this to him and have ordered a protein electrophoresis and a few other labs to rule out any other concomitant problems. The Imuran could be contributing to his anemia but I feel it is a minor factor since his white count and platelet count are normal. I do not feel a bone marrow is indicated at this time. Thank you for this consultation.
== END 2016-05-22 19:30 | disposition home or self-care (01) | DRG 812 ==
LOC: ED 14:03 → EDINP 16:30 → ICU 18:19
PROVIDERS: ADMIT Internal Medicine; ATTEND Internal Medicine
PROC: 30233N1 Transfusion of Nonautologous Red Blood Cells into Peripheral Vein, Percutaneous Approach (ICD-10-PCS; principal; 2016-05-21)
DX: D50.9 Iron deficiency anemia, unspecified (principal); K50.10 Crohn's disease of large intestine without complications; G35 Multiple sclerosis; N40.0 Benign prostatic hyperplasia without lower urinary tract symptoms; F32.9 Major depressive disorder, single episode, unspecified; K21.9 Gastro-esophageal reflux disease without esophagitis; Z79.899 Other long term (current) drug therapy
CPT/HCPCS: 36415; 36430; 71010; 74177; 80048; 80053; 81001; 82270; 82607; 82728; 82746; 83010; 83540; 83550; 83615; 83735; 83880; 84443; 84484; 85007; 85025; 85027; 85610; 85730; 86747; 86850; 86900; 86901; 86920; 87040; 87641; 93005; 96372; 99222; 99284; A9698; G0237; J1650; J3490; P9016